=== PATIENT | female | born 1990 | race African-American/Black ===

== ENCOUNTER 2018-10-07 22:40 | Emergency (ER) | payer OTHER ==
[~2018-10-07] VITALS: Ht 162.6 cm; Wt 90.7 kg
[2018-10-07] MEDS ORDERED: NOHOMEMEDICATIONS (23:12)
[2018-10-07 23:16] LABS: URINE BILIRUBIN NEGATIVE (Negative); URINE BLOOD NEGATIVE (Negative); URINE CLARITY CLEAR; URINE COLOR YELLOW; URINE GLUCOSE-RANDOM* NEGATIVE (Negative); URINE KETONES NEGATIVE (Negative); URINE NITRITE NEGATIVE (Negative); URINE PROTEIN (DIPSTICK) NEGATIVE (Negative); URINE SPECIFIC GRAVITY 1.025 (1.005-1.035); URINE UROBILINOGEN 0.2 E.U./dl (0.2-1.0)
[2018-10-07 23:17] LABS: URINE LEUKOCYTES NEGATIVE (Negative)
[2018-10-07 23:41] LABS: ABSOLUTE NEUTROPHILS 5.3 thou/uL (1.4-8.2); BASOPHILS 0.6 % (0.0-2.0); EOSINOPHILS 2.9 % (0.0-3.0); HEMATOCRIT 38.1 % (37.0-47.0); HEMOGLOBIN 13.1 gm/dL (12.0-15.0); LYMPHOCYTES 30.6 % (24.0-44.0); MCH 29.2 pg (26.0-34.0); MCHC 34.3 g/dL (28.0-37.0); MCV 85.2 fL (80.0-100.0); MONOCYTES 6.2 % (1.0-8.0); PLATELET COUNT 300 thou/uL (150-400); POLYS 59.7 % (36.0-66.0); RBC 4.47 mil/uL (4.20-5.00); RDW 13.1 % (10.5-14.5); WBC 8.9 thou/uL (4.0-11.0)
[2018-10-08 02:48] VITALS: BP 132/76
== END 2018-10-08 02:55 | disposition home or self-care (01) ==
LOC: ER 22:40
PROVIDERS: Student in an Organized Health Care Education/Training Program
DX: O20.0 Threatened abortion (principal); O26.891 Other specified pregnancy related conditions, first trimester; Z3A.01 Less than 8 weeks gestation of pregnancy; N80.0 Endometriosis of uterus; B37.9 Candidiasis, unspecified; Z90.49 Acquired absence of other specified parts of digestive tract; Z98.890 Other specified postprocedural states; Z88.5 Allergy status to narcotic agent; Z91.041 Radiographic dye allergy status; F17.210 Nicotine dependence, cigarettes, uncomplicated